=== PATIENT | female | born 1950 | race Caucasian/White ===

== ENCOUNTER → 2020-07-22 09:15 | Outpatient (BNVA) | payer MEDICARE, SELFPAY | PROVIDERS: Visit Provider Nurse Practitioner Family | DX: E78.5 Hyperlipidemia, unspecified (principal); R53.83 Other fatigue; I10 Essential (primary) hypertension | CPT/HCPCS: 80053; 80061; 84443 ==

== ENCOUNTER → 2022-10-18 09:20 | Outpatient (BNVA) | payer MEDICARE, SELFPAY | PROVIDERS: PCP Nurse Practitioner Family; Visit Provider Internal Medicine Cardiovascular Disease | DX: R07.9 Chest pain, unspecified (principal); I10 Essential (primary) hypertension; E78.5 Hyperlipidemia, unspecified; R94.31 Abnormal electrocardiogram [ECG] [EKG]; F17.210 Nicotine dependence, cigarettes, uncomplicated | CPT/HCPCS: 93005; 99204 ==

== ENCOUNTER 2022-11-01 06:26 | Outpatient (CLI) | payer MEDICARE, SELFPAY ==
[2022-11-01 07:03] VITALS: BMI 29.6
--- NOTE | 2022-11-01 07:06 | NMCV_ITS ---
NM karin perf SPECT r/s* [id number] Lupe Cornejo Age: 71 Gender: F : 1950 Exam Date: 11/01/2022 07:29 Ordering Phys: Selma Moser MD ([email or web address]) Technologist: HARRY Montoya Exam Location: [facility] Indications: Chest Pain STRESS TEST Please see separate stress test report in [facility] for full findings IMAGE PROTOCOL Rest/Stress 1 Lexiscan Day Radiopharmaceutical Dose (mCi) Administration Site Administered by Rest: Tc-99m 10.6 IV HARRY Miramontes Sestamibi Stress:Tc-99m 32.6 IV HARRY Miramontes Sestamibi Rest: 01-Nov-2022 60 Discovery 630 Stress: 01-Nov-2022 30 Discovery 630 0.4mg Lexiscan. Images obtained in supine and prone position. SPECT RESULTS Technical Quality: Excellent Raw Data Analysis: Normal, Breast attenuation Image Corrections: No attenuation or motion correction applied Summed Stress Score: 12 Summed Rest Score: 3 Summed Difference Score: 9 PERFUSION FINDINGS Medium sized perfusion abnormality of moderate severity of mid to apical anterior, apical septal, apical lateral and mid to apical inferior wheeler. FUNCTIONAL RESULTS (calculated via Gated SPECT) Stress Image LV EF (%): 74 Stress EDV (mL):65 TID: 1.36 Stress ESV (mL):17 FUNCTIONAL FINDINGS: Left ventricle dilation with stress. Transient Ischemia Dilatation of 1.36. There is normal left ventricular systolic function. The left ventricular ejection fraction is normal with a value of 74%. There is mid to apical anterior, septal and apical hypokinesis IMPRESSIONS 1. Medium sized reversible perfusion abnormality of moderate severity of mid to apical anterior, apical septal, apical lateral and mid to apical inferior wheeler. 2. This is suggestive of moderate ischemia in left anterior descending artery territory. 3. Elevated Transient Ischemia Dilatation index of 1.36 and LV dilation with stress. 4. No EKG changes with Lexiscan infusion. Refer to separate report for details. Selma Moser MD (Electronically Signed) Final Date: 03 November 2022 10:58 S
--- NOTE | 2022-11-01 07:06 | ECG_ITS ---
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 Interpretive Statements NAME OF STUDY: LEXISCAN SESTAMIBI STRESS TEST INDICATION: Chest Pain PROCEDURE: At the baseline, the blood pressure was 113/83 mmHg with a heart rate of 76 bpm. The electrocardiogram showed sinus rhythm, left axis deviation. Possible old anteroseptal infarct. T wave Inversion in anterolateral leads (V4-V6), consider ischemia. The Lexiscan was infused over a period of 20 seconds. A total of 0.4 milligrams of Lexiscan was infused. The stress phase was continued for a total of 5 minutes. Heart rate at the end of the stress phase was 86 bpm with a blood pressure 142/84 mmHg. The EKG at the peak infusion revealed sinus rhythm. T wave becomes upright in V4 to V6 at peak stress. Sestamibi was injected 20 seconds after the Lexiscan infusion. Blood pressure at the end of the recovery phase was 126/82 mmHg with a heart rate of 84 beats per minute. CONCLUSION: 1. No significant EKG changes with the LexiScan infusion. 2. No LexiScan induced chest pain or cardiac arrhythmia. 3. Normal blood pressure and heart rate response. 4. Sestamibi/sestamibi perfusion scan pending; see separate report. Electronically Signed On 11-03-2022 11:02:49 CDT by Selma Moser M.D. [email or web address]
[2022-11-01] MEDS: regadenoson 0.4 Mg/5 ml Syringe IVP (08:07)
[2022-11-01 08:22] VITALS: BP 126/82; PULSE 84
== END 2022-11-01 06:27 | disposition home or self-care (01) ==
PROVIDERS: PCP Nurse Practitioner Family; Visit Provider Internal Medicine Cardiovascular Disease
DX: R07.9 Chest pain, unspecified (principal)
CPT/HCPCS: 36415; 78452; 93017; 96374; A9500; J2785

== ENCOUNTER 2022-11-08 09:57 | Outpatient (CLI) | payer MEDICARE, SELFPAY ==
[2022-11-08 10:48] LABS: Basophils % 0.3 %; Eosinophils # 0.2 10^3/uL (0.0-0.8); Eosinophils % 2.5 %; Hematocrit 46.4 % (37.0-47.0); Hemoglobin 15.4 g/dL (11.5-15.3); Lymphocytes % 28.5 %; Mean Corpuscular HGB Conc 33.2 g/dL (30.0-36.0); Mean Corpuscular Hemoglobin 28.5 pg (28.0-34.0); Mean Corpuscular Volume 85.8 fl (81-99); Mean Platelet Volume 10.8 fL (7.4-10.4); Monocytes # 0.4 10^3/uL (0.2-0.9); Monocytes % 5.3 %; Neutrophils # 4.49 10^3/uL (1.8-7.7); Neutrophils % 63.1 %; Nucleated Red Blood Cells % 0 %; Platelet Count 182 10^3/cmm (130-400); Red Blood Count 5.41 10^6/uL (4.1-5.3); Red Cell Distribution Width 12.2 % (12.1-15.1); White Blood Count 7.1 10^3/uL (4.0-10.0)
[2022-11-08 10:52] LABS: INR 0.89 (0.83-1.21); Prothrombin Time (Patient) 12.3 Seconds (12.0-15.1)
[2022-11-08 11:00] LABS: Anion Gap 17.4 (5-19); Blood Urea Nitrogen 16 mg/dL (8-23); Calcium 9.4 mg/dL (8.5-10.5); Carbon Dioxide 24 mmol/L (22-29); Chloride 96 mmol/L (98-107); Glomerular Filtration Rate 82.7 mL/min (90-130); Glucose 347 mg/dL (65-115); Osmolality Calculated 291 mOsm/kg (285-295); Potassium 4.4 mmol/L (3.5-5.1); Sodium 133 mmol/L (136-145)
== END 2022-11-08 09:58 | disposition home or self-care (01) ==
PROVIDERS: PCP Nurse Practitioner Family; Visit Provider Internal Medicine Cardiovascular Disease
DX: R94.39 Abnormal result of other cardiovascular function study (principal); R07.9 Chest pain, unspecified
CPT/HCPCS: 36415; 80048; 85025; 85610

== ENCOUNTER 2022-11-15 11:40 | Inpatient (IN) | payer MEDICARE, SELFPAY ==
[2022-11-15] VITALS (34 sets, daily range): BP systolic 112–152; BP diastolic 65–94; PULSE 61–89; RESP 12–26; TEMP 36.7–37.1; O2SAT 92–100; BMI 29.4
[2022-11-15] MEDS: diphenhydrAMINE 50 mg Capsule PO (07:25)
--- NOTE | 2022-11-15 07:30 | XACV_ITS ---
Exam Room: 2 Ht: 165 cm Wt: 80 kg BSA: 1.94 m2 Gender: Female : 1950 Any Known Allergies: Codeine Exam Priority: Routine Procedure(s): Procedure Description: Diagnostic procedure Procedure Description: PCI procedure Procedure Description: Left Heart Catheterization Procedure Description: Drug Eluting Coronary Stent Procedure Description: PTCA Procedure Description: Coronary Angiography Diagnostic Cath Status: Elective Diagnostic Findings * 71-year-old woman with past medical history of hypertension, hyperlipidemia, chronic active smoking and borderline diabetes mellitus not on medications. She presented for evaluation of epigastric discomfort that feels like indigestion/heartburn. She underwent sestamibi stress test that showed LAD territory perfusion abnormality.. * Left Main has no disease. * Medium caliber left anterior descending artery. * M * id Left Anterior Descending with 95% stenosis, JEFFREY: 2 flow. * Medium caliber circumflex artery * that gives off 2 major obtuse marginal branches and left posterior descending artery. Distal circumflex with mild 20% stenosis. * Mild diffuse disease in proximal and mid * right Coronary Artery. * Coronary angiography shows co dominant circulation. PCI Status: Urgent PCI LVEF Assessed: No PCI Indication: New Onset Angina <= 2 months Interventional Findings * The area of concern in the mid LAD was initially angioplastied with a 2.5 x 20 mm balloon. This was followed by deployment of a 3 x 26 mm stent. No complications. Good angiographic result. Decision for PCI with Surgical Consult: No PCI for Multi-vessel Disease: No Conclusions 1. There is obstructive coronary artery disease with one vessel disease. 2. Obstructive mid LAD stenosis underwent balloon angioplasty followed by drug-eluting stent placement good angiographic results. Recommendations * Statin and aspirin 81mg lifelong, if tolerated. * Continue Plavix 75mg p.o. daily for at least one year. We will assess at the end of one year to determine continuation or not. LV EDP: 11 mmHg Left Ventriculography Findings: * Left Ventriculogram not performed to minimize contrast use. Pressures Phase:Rest AO : 111 / 73 ( 88 ) @ 9:50:00 AM 121 / 75 ( 94 ) @ 10:01:00 AM 138 / 80 ( 104 ) @ 10:08:00 AM 137 / 79 ( 104 ) @ 10:08:00 AM 136 / 71 ( 95 ) @ 10:11:00 AM 142 / 78 ( 104 ) @ 10:22:00 AM 141 / 98 ( 119 ) @ 10:33:00 AM LV : 133 / -10 / 11 @ 10:08:00 AM 126 / -7 / 10 @ 10:08:00 AM Valves Phase:DefaultPhase AV : 0.0 @ 9:41:59 AM 0.0 @ 9:41:59 AM AV Mean Gradient: 0.0 @ 9:41:59 AM 0.0 @ 9:41:59 AM Clinical Evaluation EBL: 5mL-10mL Procedural Details Procedure Consent Obtained. Admit Source: Out Patient. Pre-Procedure Time Out. Identified patient by full name and date of as verbalized by the patient/guarantor. Does the consent match the physician's order: Yes. Accurate & Complete Informed Consent: Yes. Inpatient/Outpatient History & Physical on Chart: Yes. If H&P is completed, is and addenduem needed: No; If yes, is the addendum complete: N/A. Visualize and Verify Site with Patient/Guarantor: N/A. Relevant Radiology Images available: Yes. The risks, benefits, and alternatives of sedation and/or procedure were discussed by physician. The patient agrees to continue. Procedure started. [facility] Clinical Fraility Score: 3: Managing Well. 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 Chest Pain Symptom Assessment: Atypical Angina. Correct patient, site and procedure confirmed by cath team. Current diagnosis: Chest Pain, Abnormal stress test. PERRLA. Strong, equal hand regulatory affairs strategy specialist bilaterally. Lungs clear x 5 lobes. IV Site on Arrival: 20 gauge in the right anticubital. IV Fluids: 0.9% NaCl at 75ml/hr. 0 mL infused prior to open hearth furnace laborer. Pre Procedural Pulses: bilateral radial was 2+. Pre Procedural Pulses: bilateral dorsalis pedis was 3+. Pre Procedural Pulses: bilateral posterior tibial was 1+. Oxygen started at 2liters/min via nasal cannula. Physician notified. Physician arrived. Baseline sample Acquired. HR: 79 BPM. Physician scrubbed in. Immediate Pre-Procedure Time Out. Correct Patient: Yes; Correct Procedure: Yes; Correct Site: Yes; Correct Patient Position: Yes; Correct Supplies: Yes; Dried Flammable Prep: Yes; Blood Products Available: No;. Lidocaine 1% infiltrated to the right radial. A 5 swedish TIG catheter in over wire. Angiography performed of left coronary artery. Catheter removed over the exchange wire. A 5 swedish JL4 catheter in over wire. Multiple views taken of left coronary artery. Catheter removed over the exchange wire. A 5 swedish JR4 catheter in over wire. Multiple views taken of right coronary artery. EDP Sample taken: LV 133/-11,11; HR: 69 BPM; SpO2: 99%. Pullback taken: LV 126/-8,10; AO 138/80(104); Mean: 0mmHg, Peak to Peak: 0mmHg, SEP: 8sec/min; HR: 82 BPM; SpO2: 99%. Catheter out. Dr. Patricia called to lab to review cine films. Dr. Patricia arrived to lab. Sheath flushed intermittently with heparinized saline to maintain patency of radial artery. Patient's family updated. Dr. Patricia scrubbed in to perform intervention. Add inventory: Co-remote pilot operator, endoflator. 6 swedish CLS 3 guide catheter was inserted over the wire. [place] guidewire was advanced through the guide catheter to lesion in the mid LAD. Guidewire advanced across lesion. Balloon inserted to lesion in the mid LAD. Inflation number : 1 A AB TREK 2.50X20 RX BALLOON was prepped and advanced across the Mid LAD , then inflated to 8 CRISTOBAL for 0:30 seconds. Balloon out. Angiography performed, checking results. Stent inserted to lesion in the mid LAD. Inflation Number : 2 A SIS Morris JEAN 3.0X26 JUAN -Lot Number# [id number] EXP 12-08-2024 was prepped and advanced across the Mid LAD. The stent was deployed at 12 CRISTOBAL for 0:28 seconds. Stent balloon out over wire. Results checked. Wire out. Guide catheter out. A TR Band was successful obtaining hemostatsis at the Right Radial artery insertion site. Post Procedure: Pulses reassessed and unchanged. PERRLA. Strong, equal hand regulatory affairs strategy specialist bilaterally. No VTE prophylaxis required. Medication's Wasted: Lidocaine 1% = 2 mL. Medication's Wasted: Nitro = 49.8 mg. Medication's Wasted: Heparin = 1000 units. Total IV fluids: 75 mL. Post-op diagnosis: CAD, Severe mid LAD stenosis. Status post PCI placement of 1 stent. Complications: None. Estimated blood loss: 5mL-10mL. Responsiveness - Normal response to verbal stimuli; alert and oriented, PERRLA. Airway - Unaffected, no intervention required; spontaneous ventilation. Circulation: W/N/L, pulses unchanged. Nausea/Vomiting: No. Procedure completed. Patient transferred by wheelchair to CPRU. Vital chart was stopped. Access Site Site: Right Radial artery Sheath Size: 6 Fr Hemostasis Method: TR Band Hemostasis Success: Successful Complication Findings: No complications occurred during the procedure. Intra/Post-Procedure Events Stroke - Undetermined: No Cardiac Arrest: No Procedure Medications Start: 8:38 AM Stop: 8:38 AM Medication: Versed Amount: 1 mg Route: I.V. Start: 8:38 AM Stop: 8:38 AM Medication: Fentanyl Amount: 50 mcg Route: I.V. Start: 8:47 AM Stop: 8:47 AM Medication: Nitrogylcerin Amount: 200 mcg Route: I.A. Start: 8:49 AM Stop: 8:49 AM Medication: Heparin Amount: 5000 units Route: I.V. Start: 9:20 AM Stop: 9:20 AM Medication: Versed Amount: 1 mg Route: I.V. Start: 9:20 AM Stop: 9:20 AM Medication: Fentanyl Amount: 25 mcg Route: I.V. Start: 9:32 AM Stop: 9:32 AM Medication: Fentanyl Amount: 25 mcg Route: I.V. I, the attending physician, have reviewed and verified all procedure medications. Yes, all medications given per verbal order History/Risk Factors Hypertension: Yes Dyslipidemia: No Peripheral Arterial Disease (PAD): No Myocardial Infarction (LA): No Obesity: No Renal Disease: No Tobacco Use: Current/Recent(w/in 1 year) Prior Interventions PCI: No CABG: No Valve Surgery: No Report Signatures Diagnostic Workflow Finalized by Selma Moser MD on 11/18/2022 12:16 PM Interventional Workflow Finalized by Dr. Rasta Patricia MD on 11/15/2022 09:50 AM
[2022-11-15 07:40] LABS: Glucose Point of Care 388 mg/dL (70-110)
--- NOTE | 2022-11-15 08:33 | P.HPUD_ITS ---
Surgery/Procedure H&P Update DATE OF PROCEDURE: November 15, 2022 DATE H&P PERFORMED: 10/18/22 H&P UPDATE INFORMATION: I have reviewed H&P completed within last 30 days, I have examined patient prior to procedure and No changes to prior documentation PREOP DIAGNOSIS: Chest pain, abnormal stress test PRIMARY INDICATION FOR PROCEDURE: Chest pain, abnormal stress test PLANNED PROCEDURE: Operation Date: 11/15/22 08:30 Proposed Procedures p [facility] [id number], R94.39,R07.9(Left) - Selma Moser MD PATIENT REASSESSED PRIOR TO SEDATION, WITH NO CHANGE NOTED: Yes PHYSICAL EXAM: alert, oriented x 3, clear to auscultation bilaterally and regular rate & rhythm AIRWAY EVAL/ANESTHESIA PLAN: normal airway, ASA III, Monitored Anesthesia, Risks, benefits & alternatives of sedation and/or procedure discussed and Patient agrees to continue as planned
--- NOTE | 2022-11-15 09:45 | SUR.EXTENDED ---
Received the patient back from the clinical laboratory aides teacher S/P PCI of the mid LAD via wheelchair. patient ambulated tot he bed without difficultly. A & O x 3. TR band intact to the right radial. Palpable radial pulse. No bleeding or hematoma noted. Post cath activity restrictions given to the patient and her spouse with their understanding verbalized. monitoring manager placed and vital signs obtained. No other assessment changes noted from pre cath assessment. Will transfer to CSU when room available.
--- NOTE | 2022-11-15 10:45 | SUR.EXTENDED ---
Letting the air out of the band per protocol. No other changes noted at this time. Spouse, Speedy, went home for the day.
--- NOTE | 2022-11-15 11:00 | PC.NURSE ---
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 She is alert and oriented. TR band intact. Pulses , right radial, resent. Heart rhythm on monitor sinus. NO Cp or other discomforts per pt. IV noted on right , NS to this site.
[2022-11-15] MEDS: sodium chloride 0.9% 1,000 ML 100 ML IV (12:00)
--- NOTE | 2022-11-15 13:20 | PC.NURSE ---
Slight oozing noted at cath insertion site.
--- NOTE | 2022-11-15 13:30 | PC.NURSE ---
TR band completed released. Biocclusive dressing to site. Site: no hematoma, swelling or bleeding noted.
--- NOTE | 2022-11-15 17:53 | PC.NURSE ---
Discharge packet provided and discussed: Post cardiac cath care, heart healthy diet care notes, follow-up appts and medications. Pt and friend verbalized understanding.
== END 2022-11-15 17:52 | disposition home or self-care (01) | DRG 249 ==
PROVIDERS: Internal Medicine Cardiovascular Disease; Admitting Provider Internal Medicine Cardiovascular Disease; PCP Nurse Practitioner Family; Visit Provider Internal Medicine Cardiovascular Disease
DX: I25.119 Atherosclerotic heart disease of native coronary artery with unspecified angina pectoris (principal); I10 Essential (primary) hypertension; E78.5 Hyperlipidemia, unspecified; F17.200 Nicotine dependence, unspecified, uncomplicated; R73.03 Prediabetes
CPT/HCPCS: 36415; 36416; 82962; 93458; 96361; 96365; 99152; 99153; C1725; C1769; C1874; C1887; C1894; C9600; J1644; J2250; J3010; J3490; J7030; Q0163; Q9967

== ENCOUNTER → 2022-11-23 08:48 | Outpatient (BNVA) | payer MEDICARE, SELFPAY | PROVIDERS: PCP Nurse Practitioner Family; Visit Provider Nurse Practitioner Family | DX: I25.10 Atherosclerotic heart disease of native coronary artery without angina pectoris (principal); F17.210 Nicotine dependence, cigarettes, uncomplicated | CPT/HCPCS: 36415; 80048; 99213 ==

== ENCOUNTER 2023-01-10 11:34 | Emergency (ER) | payer MEDICARE, SELFPAY ==
[2023-01-10 11:39] VITALS: BP 135/86; PULSE 96; RESP 22; TEMP 37.2; O2SAT 98; BMI 28.3
--- NOTE | 2023-01-10 11:52 | XR_ITS ---
WS: [id number] Exam: XR chest 1V portable [id number] Date/Time of Exam: 01/10/2023 11:52 AM Reason For Exam: weakness No priors. The lungs are clear and fully inflated. Normal cardiomediastinal silhouette. No pleural effusions. Mi ld hyperinflation. Regional bony elements are intact. IMPRESSION: 1. Mild pulmonary hyperinflation. No acute process.
[2023-01-10 12:45] LABS: Basophils % 0.5 %; Eosinophils % 0.4 %; Hematocrit 49.2 % (36-47); Lymphocytes # 2.1 10^3/uL (0.8-4.8); Lymphocytes % 25.1 %; Mean Corpuscular HGB Conc 33.9 g/dL (30-55); Mean Corpuscular Hemoglobin 29.7 pg (27-33); Mean Corpuscular Volume 87.4 fl (85-98); Mean Platelet Volume 10.1 fL (7.4-10.4); Monocytes # 0.4 10^3/uL (0.2-0.9); Monocytes % 5.3 %; Neutrophils # 5.61 10^3/uL (1.8-7.7); Neutrophils % 67.6 %; Nucleated Red Blood Cells % 0 %; Platelet Count 262 10^3/cmm (157-399); Red Blood Count 5.63 10^6/uL (3.85-5.65); Red Cell Distribution Width 12.6 % (12.1-15.1); White Blood Count 8.29 10^3/uL (3.29-11.43)
[2023-01-10 13:00] LABS: Alanine Aminotransferase 16 U/L (0-33); Albumin Level 4.5 g/dL (3.5-5.2); Alkaline Phosphatase 96 U/L (35-105); Blood Urea Nitrogen 23 mg/dL (8-23); Calcium 10.8 mg/dL (8.5-10.5); Carbon Dioxide 15 mmol/L (22-29); Chloride 93 mmol/L (98-107); Creatinine Clr Calc Pharmacy 58.8712; Globulin 3.3 g/dL (1.3-4.6); Glucose 461 mg/dL (65-115); Osmolality Calculated 300 mOsm/kg (285-295); Sodium 133 mmol/L (136-145); Total Bilirubin 0.4 mg/dL (0.15-1.2); Total Protein 7.8 g/dL (6.6-8.7)
[2023-01-10 13:04] LABS: Anion Gap 29.8 (5-19); Aspartate Amino Transferase 13 U/L (0-32); Potassium 4.8 mmol/L (3.5-5.1)
[2023-01-10 13:16] LABS: Slide Review Slide Review Perform
--- NOTE | 2023-01-10 14:27 | W.ED.WEAKNES ---
HPI - Weakness General: Chief complaint: Weakness Stated complaint: sent by luca/weakness Time Seen by Provider: 01/10/23 11:39 Source: patient Mode of arrival: ambulatory History of Present Illness: This 72-year-old female with a history of coronary artery disease, status post stent placement in October 2022, presents to the ER with progressive weakness since November. Patient states that she did well for 3 weeks after the stent was placed but from then onwards, she has developed generalized weakness that has become progressive. She has poor appetite and feels shortness of breath on exertion. She has had a few falls at home. She typically mobilizes without a cane or walker. She is yet to follow-up with her instructional materials director. Patient called her primary care provider who advised her to come to the ER for evaluation. She denies chest pain, vomiting or diarrhea. Associated symptoms: Denies chest pain, chills, dysuria, easy bruising or headache(s) Review of Systems Const: Reports: change in appetite and other (Generalized weakness); Denies: chills or body aches Eyes: Denies: change in vision or eye discharge ENMT: Denies: throat pain, dental pain or nasal discharge Card: Denies: chest pain or lightheadedness : Denies: dysuria Musc: Denies: neck pain or back pain Neuro: Denies: headache(s) or weakness in extremities Psych: Denies: depression Jevon/Lymph: Denies: easy bruising All/Imm: Denies: urticaria, tongue swelling or facial swelling PFSH ED PFSH: Medical History Coronary artery disease History of brain tumor Surgical History S/P brain surgery Family History Mother Hypertension Family/Other Diabetes Social History Smoking and tobacco status: current every day smoker cigarettes Packs smoked per day: 0.5 [ Other cigarette details: 1 pack every 3 days] Alcohol intake: current Alcohol intake frequency: holidays/special occasions only Substance/Drug Use: never Lives independently: Yes Household members: spouse Housing: House Physical Exam Const: COMMON NORMALS: no acute distress, patient oriented x3, no limitations and alert HENMT: COMMON NORMALS: normocephalic HEAD & SCALP: normocephalic Eye: COMMON NORMALS: EOMs intact bilaterally Neck/C-Spine: COMMON NORMALS: full ROM and supple Chest: COMMONS NORMALS: normal inspection of the chest Resp: COMMON NORMALS: normal respiratory effort, No retractions, No use of accessory muscles and clear to auscultation bilaterally AUSCULTATION: clear to auscultation bilaterally Cardio: COMMON NORMALS: regular rate, regular rhythm and No murmurs present (Cardio) RATE: regular rate RHYTHM: regular rhythm GI: COMMON NORMALS: Normal to inspection, nondistended, normoactive bowel sounds present and non-tender : COMMON NORMALS: Yes no CVA tenderness BLADDER/KIDNEY EXAM: Yes no CVA tenderness Back/Pelvis: COMMON NORMALS: no CVA tenderness and no thoracic nor lumbar tenderness Extremity: GENERAL: Yes normal exam except as noted Neuro: COMMON NORMALS: patient oriented x3 and no focal motor deficits SENSORIUM/ORIENTATION: Yes alert Psych: COMMON NORMALS: mental status grossly normal and cooperative Course Vital Signs: Vital signs: Vital Signs Temperature 98.9 F 01/10/23 11:39 Pulse Rate 90 01/10/23 15:06 Respiratory Rate 16 01/10/23 15:06 Blood Pressure 147/84 01/10/23 15:06 Pulse Oximetry 98 01/10/23 15:06 Oxygen Delivery Me thod Room Air 01/10/23 11:39 MDM - Weakness Medical Decision Making Medical decision making: Patient presents to the ER with nonspecific symptoms of generalized weakness. She also has shortness of breath on exertion. She denies chest pain, nausea or vomiting. Work-up reveals a blood sugar of 461. On further questioning, patient tells me that she has borderline diabetes and is not on treatment for it. I made her aware that her current glucose level is consistent with full-blown type 2 diabetes. My initial plan was to admit her, control her blood sugar and start her on antidiabetic medication. Patient declined, stating that her mentally challenged time has an eye surgery in 2 days time and another surgery on 01/26/2023. She does not want anything to interfere with it. So, she would rather go home and follow-up with her primary care provider. I offered to give her oral antidiabetic medication to go home with. She again declined, stating that she will talk to her primary care provider first. I advised her to call her primary care provider first thing tomorrow morning. She should return if she develops any new concerns or changes her mind. Lab Data 01/10/23 12:35 01/10/23 12:35 Laboratory Results WBC 8.29 10^3/uL (3.29-11.43) 01/10/23 12:35 RBC 5.63 10^6/uL (3.85-5.65) 01/10/23 12:35 Hgb 16.70 g/dL (11.27-16.99) 01/10/23 12:35 Hct 49.2 % (36-47) H 01/10/23 12:35 MCV 87.4 fl (85-98) 01/10/23 12:35 MCH 29.7 pg (27-33) 01/10/23 12:35 MCHC 33.9 g/dL (30-55) 01/10/23 12:35 RDW 12.6 % (12.1-15.1) 01/10/23 12:35 Plt Count 262 10^3/cmm (157-399) 01/10/23 12:35 MPV 10.1 fL (7.4-10.4) 01/10/23 12:35 Neut % (Auto) 67.6 % 01/10/23 12:35 Lymph % (Auto) 25.1 % 01/10/23 12:35 [place] % (Auto) 5.3 % 01/10/23 12:35 Eos % (Auto) 0.4 % 01/10/23 12:35 Baso % (Auto) 0.5 % 01/10/23 12:35 Neut # (Auto) 5.61 10^3/uL (1.8-7.7) 01/10/23 12:35 Lymph # (Auto) 2.1 10^3/uL (0.8-4.8) 01/10/23 12:35 [place] # (Auto) 0.4 10^3/uL (0.2-0.9) 01/10/23 12:35 Eos # (Auto) 0.0 10^3/uL (0.0-0.8) 01/10/23 12:35 Baso # (Auto) 0.0 10^3/uL (0.0-0.1) 01/10/23 12:35 Nucleated RBC % (auto) 0 % 01/10/23 12:35 Nucleated RBCs # 0.0 /100WBC 01/10/23 12:35 Sodium 133 mmol/L (136-145) L 01/10/23 12:35 Potassium 4.8 mmol/L (3.5-5.1) 01/10/23 12:35 Chloride 93 mmol/L (98-107) L 01/10/23 12:35 Carbon Dioxide 15 mmol/L (22-29) L 01/10/23 12:35 Anion Gap 29.8 (5-19) H 01/10/23 12:35 BUN 23 mg/dL (8-23) 01/10/23 12:35 Creatinine 0.9 mg/dL (0.5-0.9) 01/10/23 12:35 GFR Calculation Not Reportable 01/10/23 12:35 Glucose 461 mg/dL (65-115) H 01/10/23 12:35 Calculated Osmolality 300 mOsm/kg (285-295) H 01/10/23 12:35 Calcium 10.8 mg/dL (8.5-10.5) H 01/10/23 12:35 Total Bilirubin 0.4 mg/dL (0.15-1.2) 01/10/23 12:35 AST 13 U/L (0-32) 01/10/23 12:35 ALT 16 U/L (0-33) 01/10/23 12:35 Alkaline Phosphatase 96 U/L (35-105) 01/10/23 12:35 Total Protein 7.8 g/dL (6.6-8.7) 01/10/23 12:35 Albumin 4.5 g/dL (3.5-5.2) 01/10/23 12:35 Globulin 3.3 g/dL (1.3-4.6) 01/10/23 12:35 Urine Color Yellow (Yellow) 01/10/23 17:00 Urine Appearance Clear (CLEAR) 01/10/23 17:00 Urine pH 5 (5-7) 01/10/23 17:00 Ur Specific [place] 1.020 (1.005-1.030) 01/10/23 17:00 Urine Protein Neg (Negative) 01/10/23 17:00 Urine Glucose (UA) 4+ (Normal) H 01/10/23 17:00 Urine Ketones 3+ (Negative) H 01/10/23 17:00 Urine Blood Neg (Negative) 01/10/23 17:00 Urine Nitrate Negative (Negative) 01/10/23 17:00 Urine Bilirubin Neg (Negative) 01/10/23 17:00 Urine Urobilinogen Norm mg/dL (Negative) 01/10/23 17:00 Ur Leukocyte Esterase Negative (Negative) 01/10/23 17:00 Discharge Plan Discharge Patient Disposition: Left Against Medical Advice Clinical Impression: Generalized weakness, Type 2 diabetes mellitus without complication Condition: Stable Prescriptions: No Action acetaminophen 325 mg tablet 325 mg PO QID PRN (Reason: pain) ibuprofen 200 mg tablet 200 mg PO Q6H PRN (Reason: Pain) multivitamin Tablet 1 tab PO DAILY cholecalciferol (vitamin D3) 25 mcg (1,000 unit) capsule 25 mcg PO DAILY tumeric 500 mg PO DAILY magnesium oxide 250 mg magnesium tablet 400 mg PO DAILY aspirin [Adult Low Dose Aspirin] 81 mg tablet,delayed release (DR/EC) 81 mg PO DAILY nitroglycerin [Nitrostat] 0.4 mg tablet, sublingual 0.4 mg sublingual Q5M PRN (Reason: chest pain) Qty: 25 1RF Rx Instructions: do not exceed 3 doses per episode ascorbic acid (vitamin C) [Vitamin C] 500 mg Tablet 500 mg PO DAILY Tjte-Dhnm-Kbpohm Oil [phone] mg Capsule 2 cap PO DAILY atorvastatin 20 mg tablet 40 mg PO DAILY Qty: 90 3RF clopidogrel 75 mg tablet 75 mg PO DAILY Qty: 30 6RF Discharge Orders: Discharge ED (Routine); Ordered 01/10/23 Ordered By: Lola Jones Referrals: Parris Garcia FNP [Primary Care Provider] - Patient Instructions: Opioid Safety, Pain Management Activity Restrictions/Additional Instructions: The lab tests done today show that you are diabetic. You need to start treatment as soon as possible. Since you would like to talk to your primary care provider first, be sure to talk to her first thing tomorrow. Maintain adequate hydration. Return if you develop any new concerning symptoms. Coding Level of Care Code ED Financial Economist for Carline Posadas
[2023-01-10 15:06] VITALS: BP 147/84; PULSE 90; RESP 16; O2SAT 98
[2023-01-10 15:45] VITALS: BP 117/82; PULSE 90; RESP 16; O2SAT 98
[2023-01-10 16:30] VITALS: BP 131/89; PULSE 100; RESP 16; O2SAT 97
[2023-01-10 17:03] LABS: Add Urine Microscopic? NO; Charge for UA Resulting for Rev
[2023-01-10 17:30] VITALS: BP 111/83; PULSE 104; RESP 18; O2SAT 95
[2023-01-10 17:35] LABS: Protein Urine Neg (Negative); Urine Appearance Clear (CLEAR); Urine Color Yellow (Yellow); pH Urine 5 (5-7)
[2023-01-10 17:36] LABS: Bilirubin Urine Neg (Negative); Blood Urine Neg (Negative); Glucose Urine UA 4+ (Normal); Ketones Urine 3+ (Negative); Leukocyte Esterase Urine Negative (Negative); Nitrate Urine Negative (Negative); Urobilinogen Urine Norm (Negative)
[2023-01-11 16:12] LABS: Estmated Average Glucose 338; Hemoglobin A1C 13.4 % (4.0-6.0)
== END 2023-01-10 18:09 | disposition left against medical advice (07) ==
PROVIDERS: Physician Assistant; Emergency Provider Family Medicine; PCP Nurse Practitioner Family
DX: R53.1 Weakness (principal); E11.9 Type 2 diabetes mellitus without complications; Z53.21 Procedure and treatment not carried out due to patient leaving prior to being seen by health care provider; Z79.82 Long term (current) use of aspirin; Z79.02 Long term (current) use of antithrombotics/antiplatelets; I25.10 Atherosclerotic heart disease of native coronary artery without angina pectoris; F17.210 Nicotine dependence, cigarettes, uncomplicated
CPT/HCPCS: 36415; 71045; 80053; 81003; 83036; 85025; 99284

== ENCOUNTER → 2023-01-11 13:12 | Outpatient (BNVA) | payer MEDICARE, SELFPAY | PROVIDERS: PCP Nurse Practitioner Family; Visit Provider Nurse Practitioner Family | DX: E11.9 Type 2 diabetes mellitus without complications (principal) | CPT/HCPCS: 82962; 83036 ==

== ENCOUNTER → 2023-04-12 09:00 | Outpatient (BNVA) | payer MEDICARE, SELFPAY | PROVIDERS: PCP Nurse Practitioner Family; Visit Provider Nurse Practitioner Family | DX: E11.9 Type 2 diabetes mellitus without complications (principal); E78.2 Mixed hyperlipidemia | CPT/HCPCS: 80053; 80061; 83036; 85025 ==

== ENCOUNTER 2023-07-26 09:50 | Outpatient (CLI) | payer MEDICARE, SELFPAY ==
--- NOTE | 2023-07-26 09:56 | XR_ITS ---
WS: [id number] Exam: XR wrist LT min 3V* [id number] Date/Time of Exam: 07/26/2023 9:58 AM Reason For Exam: M25.532 - Pain in left wrist No acute fracture or dislocation. Early degenerative changes of the radiocarpal joint. Subcortical cy st formation in the distal radius and ulna. Soft tissue swelling about the wrist. Mild to moderate DJ D at the CMC joint of the thumb. IMPRESSION: 1. Degenerative changes as detailed above. No acute fracture. 2. Soft tissue swelling along the radial aspect of the wrist.
== END 2023-07-26 09:51 | disposition home or self-care (01) ==
LOC: RAD 09:51
PROVIDERS: PCP Nurse Practitioner Family; Visit Provider Nurse Practitioner Family
DX: M19.032 Primary osteoarthritis, left wrist (principal); M25.532 Pain in left wrist; M79.89 Other specified soft tissue disorders
CPT/HCPCS: 73110; 80053; 83036

== ENCOUNTER → 2023-11-22 09:42 | Outpatient (BNVA) | payer MEDICARE, SELFPAY | PROVIDERS: PCP Nurse Practitioner Family; Visit Provider Nurse Practitioner Family | DX: E11.42 Type 2 diabetes mellitus with diabetic polyneuropathy (principal); I10 Essential (primary) hypertension; R53.83 Other fatigue | CPT/HCPCS: 80053; 80061; 83036; 85025 ==

== ENCOUNTER 2024-01-24 11:18 | Outpatient (CLI) | payer MEDICARE, SELFPAY ==
--- NOTE | 2024-01-24 11:25 | XRR_ITS ---
PROCEDURE INFORMATION: Exam: XR Right Humerus Exam date and time: 01/24/2024 11:59 AM Age: 73 years old Clinical indication: Injury or trauma; Blunt trauma (contusions or hematomas); Arm, upper; Right; Injury date: 4 days ago; Injury details: Fall x4 days, pain in anterior shoulder and discoloration and bruising in upper bicep and anterior shoulder, limited mobility in shoulder; Additional info: M79.601 - pain in right arm TECHNIQUE: Imaging protocol: Radiologic exam of the right humerus. Views: 2 or more views. 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 Bone demineralization. No acutely displaced fractures. No joint dislocation. Soft tissues: No acute findings in the included segments of the chest. No acute soft tissue findings. XR/[place] [id number] IMPRESSION: No acute skeletal pathology.
--- NOTE | 2024-01-24 11:25 | XRR_ITS ---
PROCEDURE INFORMATION: Exam: XR Right Shoulder Exam date and time: 01/24/2024 11:59 AM Age: 73 years old Clinical indication: Injury or trauma; Blunt trauma (contusions or hematomas); Right; Injury date: 4 days ago; Injury details: Fall x4 days, pain in anterior shoulder and discoloration and bruising in upper bicep and anterior shoulder, limited mobility in shoulder; Additional info: M25.511 - pain in right shoulder TECHNIQUE: Imaging protocol: Radiologic exam of the right shoulder. Views: 2 or more views. COMPARISON: [place] [id number] 01/24/2024 11:59 AM FINDINGS: Bones/joints: Moderate degenerative changes of the right acromioclavicular joint. Mild osteoarthritis of the right glenohumeral joint. No acutely displaced fractures. No joint dislocation. Bone demineralization. Soft tissues: No acute findings in the included segments of the chest. No acute soft tissue findings. XR/XR shoulder RT min 2V* [id number] IMPRESSION: No acute skeletal pathology.
== END 2024-01-24 11:19 | disposition home or self-care (01) ==
PROVIDERS: PCP Nurse Practitioner Family; Visit Provider Nurse Practitioner Family
DX: M19.011 Primary osteoarthritis, right shoulder (principal); M85.80 Other specified disorders of bone density and structure, unspecified site; W19.XXXA Unspecified fall, initial encounter; M79.601 Pain in right arm; M25.511 Pain in right shoulder
CPT/HCPCS: 73030; 73060